=== PATIENT | female | born 1995 | race American Indian/Alaskan Native ===

== ENCOUNTER 2018-01-04 02:10 | Emergency (ER) | payer MEDICAID, OTHER ==
--- NOTE | 2018-01-04 02:59 | EDM.PDOC ---
ED HPI GENERAL MEDICAL PROBLEM - General Chief Complaint: Lower Extremity Injury/Pain Stated Complaint: right ankle injury Time Seen by Provider: 01/04/18 02:36 Source of Information: Reports: Patient History Limitations: Reports: No Limitations - History of Present Illness INITIAL COMMENTS - FREE TEXT/NARRATIVE: Alexa is a 22 year old female who presents to the ED via EMS after slipping and twisting her ankle outside of a bar in [place]. She reports the incident happened around 0115 this morning. She reports her cousin called EMS because she was "concerned about her well being." She reports she "heard a crack" at the time of injury. She notes swelling and pain to her ankle. She reports she has some tingling in her toes. She rates her pain a 4/10. She has not taken anything for the pain. She denies any pain anywhere else. She is alert and oriented. She reports she has been drinking this evening. Admits to drinking "a couple beers and a couple shots." Onset: Today, Sudden Onset Date: 01/04/18 Onset Time: 01:15 Duration: Intermittent Location: Reports: Lower Extremity, Right Quality: Reports: Ache, Stabbing Severity: Moderate Context: Reports: Activity Associated Symptoms: Reports: No Other Symptoms. Denies: Confusion, Chest Pain , Cough, cough w sputum, Diaphoresis, Fever/Chills, Headaches, Loss of Appetite , Malaise, Nausea/Vomiting, Rash, Seizure, Shortness of Breath, Syncope, Weakness Right Ankle Pain Score (Numeric/FACES): 4 - Related Data Allergies Allergy/AdvReac Type Severity Reaction Status Date / Time shrimp Allergy Airway Uncoded 01/04/18 02:28 Tightness Home Meds: Home Meds . [No Known Home Meds] 01/04/18 [History] Past Medical History - Past Health History Medical/Surgical History: Denies Medical/Surgical History Social & Family History - Tobacco Use Smoking Status *Q: Current Every Day Smoker Years of Tobacco use: 4 Packs/Tins Daily: 0.3 Used Tobacco, but Quit: Yes Month Tobacco Last Used: 08/2014 Second Hand Smoke Exposure: No - Recreational Drug Use Recreational Drug Use: No Review of Systems - Review of Systems Review Of Systems: ROS reveals no pertinent complaints other than HPI. ED EXAM, GENERAL - Physical Exam Exam: See Below Exam Limited By: No Limitations General Appearance: Alert, WD/WN, No Apparent Distress Eye Exam: Bilateral Eye: EOMI Head: Atraumatic, Normocephalic Neck: Normal Inspection, Supple, Non-Tender, Full Range of Motion Respiratory/Chest: No Respiratory Distress, Lungs Clear, Normal Breath Sounds, No Accessory Muscle Use, Chest Non-Tender Cardiovascular: Normal Peripheral Pulses, Regular Rate, Rhythm, No Edema, No Gallop, No JVD, No Murmur, No Rub Peripheral Pulses: 2+: Dorsalis Pedis (R) Extremities: Normal Capillary Refill, Joint Swelling (right ankle), Leg Pain ( right ankle), Limited Range of Motion (right ankle). No: Increased Warmth, Pallor, Redness Neurological: Alert, Oriented, CN II-XII Intact, Normal Cognition, Normal Gait, Normal Reflexes, No Motor/Sensory Deficits Psychiatric: Normal Affect, Normal Mood Skin Exam: Warm, Dry, Intact, Normal Color, No Rash Course - Vital Signs Last Recorded V/S: Last Vital Signs Temp 97.1 F 01/04/18 03:05 Pulse 72 01/04/18 03:05 Resp 20 01/04/18 03:05 BP 100/45 L 01/04/18 03:05 Pulse Ox 99 01/04/18 03:05 - Orders/Labs/Meds Orders: Active Orders 24 hr Category Date Time Status Communication Order [RC] STAT Care 01/04/18 03:03 Active Ankle Min 3V Rt [CR] Stat Exams 01/04/18 02:38 Taken Acetaminophen/HYDROcodone [[facility] 325-5 MG] Med 01/04/18 03:02 Active 1 tab PO Q4H PRN fentaNYL [Sublimaze] Med 01/04/18 03:03 Active 25 mcg IVPUSH Q6H PRN Medication Orders Hydrocodone Bitart/Acetaminophen ([facility] 325-5 Mg) 1 tab PO Q4H PRN PRN Reason: Pain Fentanyl (Sublimaze) 25 mcg IVPUSH Q6H PRN PRN Reason: Pain Meds: Medications Generic Name Dose Route Start Last Admin Trade Name Freq PRN Reason Stop Dose Admin Hydrocodone Bitart/Acetaminophen 1 tab 01/04/18 03:02 [facility] 325-5 Mg PO Q4H PRN Pain Fentanyl 25 mcg 01/04/18 03:03 Sublimaze IVPUSH Q6H PRN Pain - Re-Assessments/Exams Free Text/Narrative Re-Assessment/Exam: 01/04/18 03:01 Will keep in extended ER as patient does not have ride home. Will wait for final radiology report and consult with orthopedics in the am. Pain medications as needed throughout the night. Arturo wrap applied to right ankle. Ice applied. Elevated on pillow. 01/04/18 07:53 Radiology report reveals acute fracture through lateral malleolus with overlying soft tissue swelling and minimal widening of ankle mortise laterally. 01/04/18 08:[address] [facility] at [facility]. Recommends Cam walker, weight bearing as tolerated and repeat Xray in 2 weeks. Will discharge home. Follow up in 2 weeks for repeat xray. Departure - Departure Time of Disposition: 08:37 Disposition: Home, Self-Care 01 Condition: Good Clinical Impression: Fracture of lateral malleolus of right fibula Qualifiers: Encounter type: initial encounter Fracture type: closed Fracture alignment: nondisplaced Qualified Code(s): S82.64XA - Nondisplaced fracture of lateral malleolus of right fibula, initial encounter for closed fracture - Discharge Information Instructions: Nondisplaced Fibular Ankle Fracture Treated With Immobilization, Adult, Ankle Fracture Referrals: Provider,Unknown [Ordering Only Provider] - Forms: ED Department Discharge Additional Instructions: Cam boot sent with patient Weight bearing as tolerated Follow up in 2 weeks for repeat Xray to ensure adequate healing with Shana Griffin DNP [facility] Q 6 hours as needed for pain - My Orders Last 24 Hours: My Active Orders 01/04/18 02:38 Ankle Min 3V Rt [CR] Stat 01/04/18 03:02 Acetaminophen/HYDROcodone [[facility] 325-5 MG] 1 tab PO Q4H PRN 01/04/18 03:03 Communication Order [RC] STAT fentaNYL [Sublimaze] 25 mcg IVPUSH Q6H PRN - Assessment/Plan Last 24 Hours: My Active Orders 01/04/18 02:38 Ankle Min 3V Rt [CR] Stat 01/04/18 03:02 Acetaminophen/HYDROcodone [[facility] 325-5 MG] 1 tab PO Q4H PRN 01/04/18 03:03 Communication Order [RC] STAT fentaNYL [Sublimaze] 25 mcg IVPUSH Q6H PRN
[2018-01-04] MEDS ORDERED: Acetaminophen/HYDROcodone 325-5 MG Tab PO PRN (03:02)
[2018-01-04] MEDS ORDERED: fentaNYL 100 MCG/2 ML SDV IVPUSH PRN (03:03)
[2018-01-04 03:40] VITALS: BP 100/45
== END 2018-01-04 11:16 | disposition home or self-care (01) ==
LOC: CC.ED 02:10
DX: S82.64XA Nondisplaced fracture of lateral malleolus of right fibula, initial encounter for closed fracture (principal); F17.210 Nicotine dependence, cigarettes, uncomplicated; Z91.013 Allergy to seafood; W01.0XXA Fall on same level from slipping, tripping and stumbling without subsequent striking against object, initial encounter
CPT/HCPCS: 73610-RT; 99283